=== PATIENT | female | born 1970 | race Caucasian/White ===

== ENCOUNTER 2022-09-01 22:27 | Emergency (ER) | payer OTHER ==
[2022-09-01 23:51] LABS: ANION GAP 11.9 mEq/L (7-13)
== END 2022-09-02 00:18 | disposition home or self-care (01) ==
LOC: DL.ED 22:27
DX: R00.2 Palpitations (principal)
CPT/HCPCS: 36415; 80053; 84443; 84484; 85025; 93005; 99285